=== PATIENT | female | born 1965 | race African-American/Black ===

== ENCOUNTER → 2017-04-05 | Outpatient (CLI) | payer OTHER ==
[~2017-04-05] VITALS: Ht 152.4 cm; Wt 56.2 kg
[~2017-04-05] MED LIST: ATROVENT 00.5 MG/2.5 IH; CABERGOLINE0.5 MG; DECADRON P4 MG/ML-1M IH; NEURONTIN300 MG PO; SORBUTUSS LIQU473 ML PO; TORADOL60 MG IM; ULTRAM50 MG PO; VOLTAREM 50 MG PO; ZITHROMAX200 MG PO
== END | disposition home or self-care (01) ==
LOC: PPHC 12:11
DX: J04.0 Acute laryngitis (principal); J06.9 Acute upper respiratory infection, unspecified

== ENCOUNTER 2019-04-22 12:05 | Outpatient (CLI) | payer OTHER | END 2019-04-22 12:08 | disposition home or self-care (01) | LOC: RAD 12:05 | DX: M54.2 Cervicalgia (principal); M54.6 Pain in thoracic spine; M54.5 Low back pain; M25.551 Pain in right hip ==

== ENCOUNTER → 2024-09-17 | Emergency (ER) | payer OTHER ==
[~2024-09-17] VITALS: Ht 165.1 cm; Wt 56.7 kg
[~2024-09-17] MED LIST changes: +AROMASIN25 MG PO; +CABERGOLINE0.5 MG PO; +CLEOCIN HCL300 MG PO; +CLINDAMYCIN PHOSPHATE 150 MG/ML (300mg) IM ONE; +IBERSARTAN PO; +INTESTINEX680 M1 PO; +ZETIA10 MG
[2024-09-17 22:26] LABS: BASO % 0.9 % (0.1-1.2); EOS # 0.13 (0.04-0.54); EOS % 2.9 % (0.7-7.0); LYMPH # 2.58 (1.18-3.74); LYMPH % 58.5 % (19.3-53.1); MEAN PLATELET VOLUME 8.80 fl (9.4-12.4); MONO # 0.33 (0.24-0.82); MONO % 7.5 % (4.7-12.5); NEUT # 1.32 (1.56-6.13); NEUT % 30.0 % (34.0-71.1); RED CELL DISTRIBUTION WIDTH 13.8 % (11.6-14.4)
[2024-09-17 22:47] LABS: URINE APPEARANCE Clear; URINE BILIRRUBIN Negative (NEGATIVE); URINE BLOOD Negative; URINE COLOR Yellow; URINE GLUCOSE Negative (NEGATIVE); URINE KETONE Negative (NEGATIVE); URINE LEUKOCYTE Small; URINE NITRATE Negative; URINE PROTEIN Negative (NEGATIVE); URINE UROBILINOGEN 0.2 E.U./dl
[2024-09-17 22:50] LABS: URINE BACTERIA 27.5 uL (0.0-1933); URINE EPITHELIAL CELLS 3.8 uL (0.0-38.8); URINE RBC 7.7 uL (0.0-20.8); URINE WBC 6.7 uL (0.0-23.2)
[2024-09-17 22:50] LABS: ALT/SGPT 47.0 U/L (12-78); AST/SGOT 33.0 U/L (15-37); BILIRUBIN TOTAL 0.2 mg/dL (0.3-1.2); BUN CREA RATIO 19.0 (7.0-25.0); CREATININE SERUM 0.7 mg/dL (0.55-1.02); GFR 86.56; GLOBULINA 4.4 G/DL (2.4-3.5); GLUCOSE FASTING 101.0 mg/dL (65-100); OSMOLALITY SERUM 282.0 MOSM/KG (275-295)
[2024-09-17 22:55] LABS: URINE CAST 0.00 uL (0.0-1.40)
== END | disposition home or self-care (01) ==
LOC: ER 17:37
PROVIDERS: General Practice
DX: L02.211 Cutaneous abscess of abdominal wall (principal); Z88.0 Allergy status to penicillin; Z85.3 Personal history of malignant neoplasm of breast; I10 Essential (primary) hypertension; E78.49 Other hyperlipidemia; K59.00 Constipation, unspecified